=== PATIENT | female | born 1960 | race Two or more races ===

== ENCOUNTER 2018-03-30 13:36 | Outpatient (CLI) | payer OTHER ==
[~2018-03-30 13:36] MED LIST: SYNTHROID50 MCG
== END 2018-03-30 13:49 | disposition home or self-care (01) ==
LOC: MAMO-SONO 13:36
DX: Z12.31 Encounter for screening mammogram for malignant neoplasm of breast (principal); N61.0 Mastitis without abscess

== ENCOUNTER 2019-11-07 09:58 | Outpatient (CLI) | payer OTHER | END 2019-11-07 10:11 | disposition home or self-care (01) | LOC: MAMO-SONO 09:58 | DX: Z12.31 Encounter for screening mammogram for malignant neoplasm of breast (principal); N60.11 Diffuse cystic mastopathy of right breast; N60.12 Diffuse cystic mastopathy of left breast ==

== ENCOUNTER 2021-10-01 08:31 | Outpatient (CLI) | payer OTHER | END 2021-10-01 08:52 | disposition home or self-care (01) | LOC: MAMO-SONO 08:31 | PROVIDERS: ATTEND Internal Medicine | DX: Z12.39 Encounter for other screening for malignant neoplasm of breast (principal); Z12.31 Encounter for screening mammogram for malignant neoplasm of breast; R92.2 Inconclusive mammogram; E04.2 Nontoxic multinodular goiter; N60.11 Diffuse cystic mastopathy of right breast ==

== ENCOUNTER 2021-10-07 09:00 | Outpatient (CLI) | payer OTHER | END 2021-10-07 09:30 | disposition home or self-care (01) | LOC: PPH VACUNA 09:00 | PROVIDERS: ATTEND Emergency Medicine Pediatric Emergency Medicine | DX: Z23 Encounter for immunization (principal) ==

== ENCOUNTER 2022-10-27 14:17 | Outpatient (CLI) | payer OTHER | END 2022-10-27 14:31 | disposition home or self-care (01) | LOC: MAMO-SONO 14:17 | PROVIDERS: ATTEND Internal Medicine | DX: Z12.39 Encounter for other screening for malignant neoplasm of breast (principal); N60.01 Solitary cyst of right breast ==

== ENCOUNTER 2024-01-13 13:32 | Outpatient (CLI) | payer OTHER | END 2024-01-13 13:41 | disposition home or self-care (01) | LOC: MAMO-SONO 13:32 | PROVIDERS: ATTEND Internal Medicine | DX: N60.39 Fibrosclerosis of unspecified breast (principal); Z12.31 Encounter for screening mammogram for malignant neoplasm of breast ==

== ENCOUNTER 2025-06-21 13:06 | Outpatient (CLI) | payer OTHER | END 2025-06-21 13:09 | disposition home or self-care (01) | LOC: MAMO-SONO 13:06 | PROVIDERS: ATTEND General Practice | DX: N61.0 Mastitis without abscess (principal); N62 Hypertrophy of breast ==